=== PATIENT | female | born 1950 | race Caucasian/White ===

== ENCOUNTER 2025-05-22 11:47 | Inpatient (IN) | payer MEDICARE, SELFPAY ==
[2025-05-22] VITALS (16 sets, daily range): BP systolic 107–164; BP diastolic 54–97; BMI 30.3; BMI 30.2
--- NOTE | 2025-05-22 06:25 | ED.GENMED ---
History of Present Illness
General
Chief Complaint: Chest Pain
Source: patient
Exam Limitations: none
Time Seen by Provider: 05/22/25 06:18
History of Present Illness
History of Present Illness:
See MDM
Past History
Past History
ED Past Medical History: HTN
ED Past Surgical History: None
Social History
Tobacco: Non-smoker
Alcohol: None
Phy Exam
Physical Exam
Physical Exam:
See MDM
Scores
Heart Score for Chest Pain Patients
STEMI patient?: No
History: Moderately Suspicious
ECG: Nonspecific Repolarization
Age: >/= 65 years
Risk Factors: 1 or 2 Risk Factors
Troponin: </= Normal Limit
Heart Score for Chest Pain Patients: 5
Heart Score Risk: 20.3% MACE over next 6 weeks
Course
Orders/Labs/Results
Orders:
Orders
05/22/25 06:04
ECG [Electrocardiogram (*1)] Urgent
Reason for Study: Chest Pain
05/22/25 06:05
EKG- Treatment ONCE
05/22/25 06:18
Cardiac Monitoring- Treatment ONCE
EKG- Treatment ONCE
IV Insert/Care/Rem.- Treatment PRN
O2 Therapy [RESP] Urgent
Titrate/Wean O2 to maintain O2 sat greater than (%): 90
Special Instructions: Maintain sats >/=90%
Pulse Ox/spot Check [RESP] Urgent
Quantity: 1
Special Instructions: ON ROOM AIR
05/22/25 06:19
Complete Blood Count/With Diff Urgent
Comprehensive Metabolic Panel Urgent
PT/INR [Prothrombin Time] Urgent
PTT Urgent
Troponin I Urgent
05/22/25 06:24
Dexamethasone Sod Phosphate [Decadron] 10 mg IV NOW STA
Ipratropium/Albuterol Sulfate [Duoneb] 3 ml INH R NOW STA
05/22/25 06:25
CR Chest Portable - 1 View Urgent
Comment:
Reason For Exam: SOB
Reason Study Needs to be Portable: Patient Unstable
05/22/25 06:34
D-Dimer Urgent
05/22/25 06:39
COVID-19 Antigen Urgent
Source: Nasal Swab
NT-proBNP Urgent
Influenza A+B Rapid Molecular Urgent
ELIANE Source: Nasal Swab
Specimen Description:
05/22/25 07:31
CT Chest PE Study Urgent
Comment:
Reason For Exam: SOB
Furosemide [Lasix] 40 mg IV NOW STA
05/22/25 10:14
Diazepam [Valium] 2 mg PO NOW STA
05/22/25 11:12
PTT Urgent
Comment: Obtain baseline before beginning heparin infusion if not already collected
Aspirin Chewable [Low Strength Aspirin] 324 mg PO NOW STA
Heparin 4,000 units IV NOW STA
Pharmacy Request to Place See Dose Instructions PO NOW STA
Discontinue all Active Warfarin orders?: Yes
Nursing to Place Non Medication Order As Directed
Physician Order: PTT 6 hours after initial start of Heparin infusion
05/22/25 11:15
Heparin INFUSION titrate rate - CONTINUOUS Heparin 51994 Units/250 ml 25,000 units in 250 ml IV PER PROTOCOL
Weight to be used for heparin protocol in kilograms (kg):: 75
Protocol:: Cardiac Tx/Acute Coronary
PTT Goal Range to be used:: PTT 73 to 111 seconds
Order type:: Initial
INITIAL Infusion Dose (UNITS/KG/hr) & then follow protocol:: 12 units/kg/hr
Infusion Dose in UNITS/hr & then follow protocol (UNITS/hr):: 900
INFUSION RATE in mL/hr & then follow protocol (mL/hr):: 9
PTT less than or equal to 64 seconds:: Increase rate by 200 units/hr (+ 2 mL/hr)
PTT 64.1 to 72.9 seconds:: Increase rate by 100 units/hr (+ 1 mL/hr)
PTT 73 to 111 seconds:: Target Range. No change in rate.
PTT 111.1 to 130.9 seconds:: Decrease rate by 100 units/hr (- 1 mL/hr)
PTT 131 to 199.9 seconds:: HOLD for 1 hr. Then decrease rate by 200 units/hr (- 2 mL/hr)
PTT greater than or equal to 200 seconds:: HOLD for 2 hrs & Notify Provider. Then decrease by 200 units/hr (-
2 mL/hr)
Lab follow-up:: Each change, PTT q6h until 2 consecutive are therapeutic. Then PTT
daily.
05/22/25 12:[address] See Dose Instructions IV DIRECTED
Abnormal Lab Results
05/22/25 05/22/25
06:19 06:34
MCHC 32.9 L g/dL
(33.0-37.0)
D-Dimer 1.45 H ug/mlFEU
(0.00-0.50)
BUN 22 H mg/dl
(7-17)
Glucose 107 H mg/dl
(70-99)
05/22/25 06:19
05/22/25 06:19
Vital Signs
Initial and Last Documented VS:
Initial Vital Signs
Temp Pulse Resp BP Pulse Ox
97.6 F 107 26 164/97 97
05/22/25 06:12 05/22/25 06:12 05/22/25 06:12 05/22/25 06:12 05/22/25 06:12
Last Documented Vital Signs
Temp Pulse Resp BP Pulse Ox
97.6 F 78 19 116/60 92
05/22/25 06:12 05/22/25 09:00 05/22/25 09:00 05/22/25 09:00 05/22/25 08:45
MDM/Problems Addressed
Differential Diagnosis Includes:
Note:
CHIEF COMPLAINT(S)
Difficulty breathing since this morning.
HISTORY OF PRESENT ILLNESS
The patient is a 74-year-old female who presents with complaints of difficulty breathing that started this morning upon waking. The patient reports waking up about four times to use the restroom and experiencing shortness of breath at those times.
The difficulty breathing is constant, occurring both at rest and with activity, but it worsens with exertion such as walking to the bathroom. The patient denied any recent chest pain but has felt wheezy and has taken deep breaths to alleviate the
sensation. There is no stated history of chronic lung issues such as chronic obstructive pulmonary disease. However, the patient is described as 'pretty wheezy.'
EKG performed showing sinus tachycardia with a left bundle branch block. There is no prior EKG to compare to. Patient states she was told that her is 'abnormal'. She states she had a cardiac evaluation at [facility] a few months ago and
was told her feeling was okay
On arrival, patient 85% on room air requiring 2 L nasal cannula
PHYSICAL EXAM
General: Alert, no acute distress.
Skin: Warm, dry.
Head: Normocephalic, atraumatic
Neck: Appears supple, trachea midline.
Eyes, Ears, Nose, Mouth, and Throat: Moist mucous membranes
Cardiovascular: No signs of cyanosis. Tachycardic
Respiratory: Respirations are non-labored. Expiratory wheezing throughout
Abdomen: Non-distended
Musculoskeletal: No deformities
Neurological: No focal neurological deficit observed.
Psychiatric: Cooperative, appropriate mood and affect.
PLAN
1. Initiate a breathing treatment to address wheezing and improve respiratory status.
2. Conduct further evaluations to rule out bronchitis and ensure cardiac function is normal.
DIFFERENTIAL DIAGNOSIS
The Differential Diagnosis includes, in no particular order and is not limited to:
1. Acute Bronchitis
2. Chronic Obstructive Pulmonary Disease exacerbation
3. Congestive Heart Failure
4. Pulmonary Embolism
5. Asthma
6. Pneumonia
7. Interstitial Lung Disease
8. Anemia
9. Myocardial Infarction
10. Anxiety-related shortness of breath
My independent EKG interpretation is:
- Time of EKG: Not provided
- Rhythm: Sinus tachycardia
- Heart Rate: 107 beats per minute
- Notable Intervals: Not provided
- [place]: Not provided
- Abnormalities: Left bundle branch block
- ST Segment: No ST elevation
- T Wave: Not provided
- Arrhythmias: None other than sinus tachycardia
- Comparison: No prior EKGs available for comparison
05/22/25 - 07:33
The patient reports significant improvement post-Duernab, though chest x-ray findings raise suspicion for pulmonary edema. Elevated BNP suggests possible cardiac strain, but troponin remains within normal limits, indicating no direct cardiac injury.
The elevated D-dimer necessitates a CT chest scan to exclude pulmonary embolism.
05/22/25 - 10:16
The patient will be treated for new-onset CHF, as indicated by the negative SCT and negative promerantibalism period.
SUMMARY OF ENCOUNTER
The patient, a 74-year-old female, presented with shortness of breath. Acute coronary syndrome was ruled out as troponin levels were negative, but findings included an elevated BNP, suggesting possible cardiac strain, and an elevated D-dimer, which
prompted a CT scan to rule out pulmonary embolism. The CT scan showed no evidence of a pulmonary embolism; however, it indicated signs consistent with congestive heart failure. The patient was initially treated with a duoneb, which offered relief. A
dose of furosemide (Lasix) was also administered to manage symptoms of fluid overload. The decision was made to admit the patient for new-onset congestive heart failure for further testing and management by the hospital services.
DISPOSITION
Admit to the hospital service.
ASSESSMENT
New-onset congestive heart failure, with no evidence of pulmonary embolism.
EMERGENCY TREATMENTS ADMINISTERED
Duoneb treatment and furosemide (Lasix).
INDEPENDENT REVIEW OF LABS AND INTERPRETATION OF TESTS
My independent review indicated negative troponins, which reduce the likelihood of acute coronary syndrome. Elevated BNP suggests cardiac strain. D-dimer was elevated, leading to the CT scan. My independent CT interpretation ruled out pulmonary
embolism and showed evidence consistent with congestive heart failure.
MEDICATION RECONCILIATION
Furosemide (Lasix) administered; initial treatment with duoneb provided.
MEDICAL DECISION MAKING
-Complexity of Data Reviewed: Chronic conditions affecting care include the suspicion of acute heart failure due to elevated BNP and negative troponins. Differential diagnosis considered included acute bronchitis, chronic obstructive pulmonary
disease exacerbation, congestive heart failure, pulmonary embolism, asthma, pneumonia, interstitial lung disease, anemia, myocardial infarction, and anxiety-related shortness of breath.
-Data:
Category 1
Non-emergency department records reviewed. Relevant tests included elevated BNP and D-dimer, negative troponin tests, and CT scan interpretation.
Category 2
My independent interpretation of the CT scan ruled out pulmonary embolism and indicated congestive heart failure.
Category 3
Not discussed with external healthcare providers in the provided context.
-Risk:
Prescription medication was prescribed and includes furosemide for management of fluid overload. Elevated BNP verified suspicion of new-onset congestive heart failure, warranting admission for further management.
DIAGNOSIS
Congestive Heart Failure, Unspecified (ICD-10: I50.9).
*Pulse Oximetry
SaO2: 97
Nasal Cannula flow liters per minute: 2
Patient hypoxic: no
*Critical Care Note
Total Time (30-74mins, 75-104mins- exclusive of procedures): Not Applicable
Update Note
Update Note:
11:13 AM patient now complaining of chest pressure. Case discussed with the hospitalist. Given the left bundle branch block with no priors, will load with aspirin and start heparin. The hospitalist stating he will call cardiology
ED Attending Note
-
Portions of this chart may have been created with voice recognition software.� Occasional wrong word or��sound alike� substitutions may have occurred due to the inherent limitations of voice recognition software.
Discharge Plan
Departure
Patient Disposition: Admit
Date of Disposition: 05/22/25
Time of Disposition: 10:21
Admit to: Telemetry
Presentation/result/management discussed w/ accepting MD/DO: Hospitalist
Discharge Problem:
New onset of congestive heart failure
Prescriptions:
No Action
multivitamin Tablet
1 tab PO DAILY
Referrals:
UNKNOWN - PT DOES,NOT KNOW [Family Provider]
Interventions
Interventions:
*Risk Screen - Suicide Last Done: 05/22/25 06:12
*General Assessment Last Done: 05/22/25 06:12
*Neglect/Abuse Screening Last Done: 05/22/25 06:12
*ED- Fall Risk Assessment Last Done: 05/22/25 06:22
*ED COVID-19 Vaccine History Last Done: 05/22/25 06:22
*ED Influenza Vaccine History Last Done: 05/22/25 06:22
ED- Cardiac Assessment Last Done: 05/22/25 06:22
Discharge Date and Time
Print Language: SOUTH SUDANESE
[2025-05-22 06:28] LABS: Hematocrit 41.6 % (37.0-47.0); Hemoglobin 13.7 g/dL (12.0-16.0); Mean Corp Hgb Conc. 32.9 g/dL (33.0-37.0); Mean Corpuscular Volume 86.7 fL (81.0-99.0); Nucleated Red Blood Cells % 0 %; Platelet Count 185 10^3/uL (130-400); Red Cell Dist. Width 13.6 % (11.5-14.5)
[2025-05-22] MEDS: DUONEB 3 ML INH (06:29)
[2025-05-22] MEDS: DECADRON 10 MG IV (06:29)
[2025-05-22 06:37] LABS: INR 0.91; PT 12.7 Sec (11.4-14.6)
[2025-05-22 06:38] LABS: APTT 34.8 Sec (23.4-35.0)
[2025-05-22 06:49] LABS: ALT (SGPT) 30 U/L (0-35); AST (SGOT) 32 U/L (14-36); Albumin 4.6 g/dl (3.5-5.0); Alkaline Phosphatase 62 U/L (38-126); Blood Urea Nitrogen 22 mg/dl (7-17); Calcium 9.3 mg/dl (8.4-10.2); Carbon Dioxide 28 mmol/L (22-30); Chloride 106 mmol/L (98-107); Estimated Creatinine Clearance 58 ml/min; Glucose 107 mg/dl (70-99); Potassium 4.1 mmol/L (3.5-5.1); Sodium 140 mmol/L (135-145); Total Protein 7.3 g/dl (6.3-8.2); eGFR > 60.00
[2025-05-22 07:02] LABS: Troponin I 0.022 ng/ml
[2025-05-22 07:06] LABS: D-Dimer 1.45 ug/mlFEU (0.00-0.50)
[2025-05-22 07:22] LABS: COVID-19 Antigen Negative (Negative)
[2025-05-22] MEDS: LASIX 40 MG IV (07:34)
--- NOTE | 2025-05-22 11:20 | HPS.HSE ---
Family Physician
-
Family Physician: NOT KNOW UNKNOWN - PT DOES
Chief Complaint
-
Shortness of breath, exertional dyspnea, left-sided chest pressure
History of Present Illness
Patient is a 74 visual female with no known history of ASCVD, not on any prescriptive medications who presents to the emergency room with about day of onset of exertional dyspnea, left-sided chest pressure. She denies any palpitation, syncope,
nausea vomiting or other gastrointestinal symptoms.
While in emergency room patient found to be hypoxic with pulse ox of 88% on room air
Refers evaluation with a CT scan of the chest was negative for PE, although evidence for pulmonary edema.
Patient was treated with single dose of Lasix with improvement of symptoms including shortness of breath, although continues to complain of a left-sided chest pressure.
Medical History
Past Medical History
Past Medical History: Reports None
Past Surgical History: Reports None
Social History
Tobacco: Non-smoker
Alcohol: None
Drug: None
Living: With Family
Family History
Family History: CAD (Monitor)
Allergies / Home Medications
Allergies reflects when Allergies were last updated in [employer].
Home Medications with original date entered in [employer]
Allergy/Medication List:
Allergies
Allergy/AdvReac Type Severity Reaction Status Date / Time
No Known Allergies Allergy Verified 05/22/25 06:12
Home Medications
multivitamin 1 tab PO DAILY Supplement 05/22/25
Review of Systems
-
A 12 point ROS was completed and negative except as noted: Yes
Physical Exam
Vital Signs
Vital Signs
Temp Pulse Resp BP Pulse Ox
97.6 F 78 19 116/60 92
05/22/25 06:12 05/22/25 09:00 05/22/25 09:00 05/22/25 09:00 05/22/25 08:45
Physical Exam
General: Well Developed, Well Nourished and No Apparent Distress
HEENT: NormoCephalic, Moist mucous membranes and Atraumatic
Respiratory: Clear
Cardiac: S1/S2 and Regular Rhythm; No Murmur or Rub
GI: Soft, Non Tender, Non Distended and Normal Bowel Sounds; No Organomegaly
Rectal: Deferred by Provider
Musculoskeletal: No Clubbing, No Cyanosis and No Edema
Skin: No Rash
Neuro: Nonfocal/grossly intact
Laboratory Results
-
05/22/25 06:19
05/22/25 06:19
Laboratory Results
PT 12.7 Sec (11.4-14.6) 05/22/25 06:19
INR 0.91 05/22/25 06:19
APTT 34.8 Sec (23.4-35.0) 05/22/25 06:19
Total Bilirubin 0.7 mg/dl (0.2-1.3) 05/22/25 06:19
AST 32 U/L (14-36) 05/22/25 06:19
ALT 30 U/L (0-35) 05/22/25 06:19
Alkaline Phosphatase 62 U/L (38-126) 05/22/25 06:19
Troponin I 0.022 ng/ml 05/22/25 06:19
Impression/Plan
-
IMPRESSION:
74 years old female without known medical history including negative history for ASCVD presents with exertional dyspnea, chest pressure.
Acute hypoxic respiratory insufficiency secondary to below
CHF unknown EF and pulmonary edema
Concern for acute coronary syndrome (presenting with chest pressure and LBBB)
LBBB unknown chronicity.
PLAN:
Admit to IVU.
Cardiology evaluation
Echocardiogram.
Start aspirin.
Start IV heparin.
Consider addition of anticoagulation if blood pressure tolerates
Trend troponin.
Lipid profile
Hemoglobin A1c
Follow response to Lasix given in ED.
Continue Lasix 40 mg IV daily with daily weights.
Continue oxygen supplementation
Full code
[2025-05-22] MEDS: LOW STRENGTH ASPIRIN 324 MG PO (11:28)
[2025-05-22] MEDS: VALIUM 2 MG PO (11:28)
[2025-05-22] MEDS: HEPARIN 4000 UNITS IV (11:34)
[2025-05-22] MEDS: HEPARIN 25000 UNITS/250 ML IV (11:35)
[2025-05-22 11:57] LABS: APTT 30.6 Sec (23.4-35.0)
--- NOTE | 2025-05-22 12:38 | CON.CAR ---
Addendum entered and electronically signed by Luis Fallon MD 05/22/25 14:46:
I saw and evaluated the patient, and I provided the substantive portion of the medical decision making.
I reviewed and agree with the note by Vianca Lance and it accurately reflects our care.
I personally performed the medical decision making of the this encounter and my assessment and plan is below:
74-year-old female with no significant past medical history presents for evaluation of chest pain and acute shortness of breath. She had been noticing some episodes of increasing exertional chest pressure that was evaluated at [facility] 3 months
ago, she reports she was evaluated and told everything was okay. She continued to have exertional chest pain and had a more severe episode while playing with her grandkids yesterday. Went home fell asleep and woke up in the middle of the night
with acute onset shortness of breath, chest pressure and sought emergent care. Interestingly she also has some residual pain to touch. In the emergency room she presented with tachycardia and a left bundle branch block. Initial troponin 0.02 and
received IV Lasix with some symptomatic improvement.
On exam she has a regular rate and rhythm with normal S1-S2 no murmurs gallops or appreciated lungs are clear to auscultation. She did have some slight tenderness across the anterior chest wall especially in the left side but states this is
different than the pain she woke up with. No lower extremity edema. Abdomen is soft nontender nondistended.
Chest x-ray shows increased interstitial markings concerning for pulmonary edema. EKG shows sinus rhythm with left bundle branch block. proBNP is 2380.
Assessment:
Acute coronary syndrome: Findings concerning for unstable angina versus ACS. Initial troponin 0.02.
- Agree with aspirin and IV heparin.
- Will proceed to coronary artery catheterization today.
- Add OMT as able
- Trend troponin
- Echo
Acute pulmonary edema: Seems to have had an ischemic etiology. Already feeling better with a single dose of IV Lasix. Will evaluate for additional doses. Will check echo. GDMT as indicated.
Eval elevated blood pressure without a diagnosis of hypertension: Continue to monitor. Will add medications as needed.
Morbid obesity: Weight loss with dietary restriction needed.
Will follow
[ ]
Original Note:
Consultation
Consultation Request
Date/Time Consultation Requested: 05/22/25 11:15a
Date/Time Consultation Performed: 05/22/25 12p
Requesting Provider: Dr. Petersen
Performing Provider: JOB Johnson for Dr. Fallon
Reason for Consultation: chest pain
Medical History
-
Chief Complaint: chest pain
History of Present Illness:
Mrs. Robbins is a 74 yo female with no significant past medical history, who presents to the ER with c/o chest pain and SOB that initially began 3 months ago. She had exertional chest pressure and went to [facility] 3 months ago, 'everything was
fine and I was sent home'. She continued to have exertional chest pressure with exercise. Yesterday around 4pm she was walking and playing with her grandkids and had left chest pressure and SOB. She went home and fell asleep and woke up with
chest pressure so she came to the ER. EKG with ST 107 bpm, LBBB. Initial troponin 0.022, very mild chest pressure currently.
Social History
Tobacco: Non-Smoker
Alcohol: None
Living: With Roomate
Family History
Family History: Other (mother had CHF age 56 )
Allergies / Home Medications
Allergy/AdvReac Type Severity Reaction Status Date / Time
No Known Allergies Allergy Verified 05/22/25 06:12
�Medication �Instructions �Recorded �Confirmed �Type
multivitamin 1 tab PO DAILY Supplement 05/22/25 05/22/25 History
Review of Systems
-
History Source: Patient
All other systems: Negative unless noted
Physical Exam
Vital Signs
Temp Pulse Resp BP Pulse Ox
97.6 F 80 13 133/75 95
05/22/25 06:12 05/22/25 12:15 05/22/25 12:15 05/22/25 12:00 05/22/25 12:15
Lab Results
05/22/25 06:19
05/22/25 06:19
Troponin I 0.022 ng/ml 05/22/25 06:19
Hkm-Y-Adwngeewdim Pept 2380 pg/ml 05/22/25 06:39
Physical Exam
General: Well Developed, Well Nourished and No Apparent Distress
HEENT: Normocephalic
Respiratory: Clear and Non Labored Respirations
Cardiac: S1/S2 and Regular Rhythm
Breast: Deferred by me
GI: Soft, Non Tender and Normal Bowel Sounds
Rectal: Deferred by Provider
Genito-urinary: No Costovertebral Tender
Musculoskeletal: No Clubbing, No Cyanosis and No Edema
Skin: Warm and Dry
Neuro: AO x 3
Hematologic/Lymphatic: No Lymphadenopathy
Psych: Calm
Impression / Plan
-
Chest pain/UA - exertional angina ongoing for 3 months.
- troponin 0.022, trend.
- EKG with new LBBB.
- ASA, Heparin.
- plan for [facility] today, she is agreeable.
- check lipid profile.
Pulmonary edema - acute.
- initial room air sat 88% in the ER.
- improved with Lasix.
- CT chest negative for PE.
- monitor.
Data Reviewed
-
EKG: Tracing Personally Visualized and interpreted (ST 107 bpm LBBB.)
Radiology: Report Reviewed by me (CXR: Nonspecific increased interstitial markings bilaterally. No large pleural effusions.)
CT Scan: Report Reviewed by me (chest: mild pulmonary edema)
Labs: Labs Reviewed by me
Old Records: Reviewed
--- NOTE | 2025-05-22 16:06 | ITS.CL.PN ---
Systems Engineering Manager - Procedure Note
Procedure
Procedure Note:
CARDIAC CATHETERIZATION REPORT
Date of Procedure: 05/22/2025
Referring: Dr. Luis Fallon MD
Indication: concern for ACS
PROCEDURE(S)
1. left heart catheterization
2. coronary angiography
ACCESS: 6F right radial artery (closure: radial band)
CATHETERS
1. 6F JR4
2. 6F JL4
MODERATE SEDATION: 25 minutes of moderate sedation was utilized. An independent medical records administrator was present to assist with and help manage the patient's level of consciousness and physiologic status.
HEMODYNAMIC DATA
LV 114/6 (EDP 10) mmHg
AO 110/63 (mean 84) mmHg
CORONARY ANGIOGRAPHY
Dominance: right
LM: large with very mild distal vessel tapering
LAD: large vessel giving rise to three small diagonal branches and one moderate caliber diagonal branch before wrapping around the apex. There trivial luminal irregularities only.
LCx: large vessel giving rise to a moderate caliber OM1. There trivial luminal irregularities only.
RCA: large vessel giving rise to a moderate caliber RPDA and moderate caliber RPL branch. There trivial luminal irregularities only.
RADIATION: dose 219 mGy; DAP 11.8 Gy*cm2; fluoroscopy time 2.8 min
CONCLUSIONS
1. trivial coronary artery disease in a right dominant system
2. normal LV filling pressure and no aortic stenosis
[2025-05-22 17:58] LABS: Troponin I 0.248 ng/ml
[2025-05-22 18:02] LABS: HDL Cholesterol 73 mg/dl; LDL Cholesterol, Calculated 141 mg/dl; Very Low Density Lipoprotein 7 mg/dl (0-30)
--- NOTE | 2025-05-22 18:11 | PTCARENOTE ---
Pt received from lab associate with band on right radial artery. Pt denying any pain. SaO2 96% on room air. Diminished lungs at the bases. Sinus rhythm with BBBC on property assessment monitor. +1 pitting LE edema. CHF education packet given. Troponin resulted
0.248. Dr. Fallon notified.
[2025-05-22] MEDS: MAALOX 30 ML PO (19:57)
[2025-05-22] MEDS: PROTONIX 40 MG PO (20:51)
--- NOTE | 2025-05-22 20:55 | PTCARENOTE ---
Patient received at change of shift resting in the bed. Upon assessing right radial puncture with previous shift RN the patient reported severe intermittent left-sided chest burning that feels better when she burps. An EKG was completed. The house
FRUIT [facility]YER was notified who ordered a stat dose of Maalox, following administration the patient reported feeling better. Stat dose of Protonix also ordered for the patient, see MAR. Sinus rhythm on telemetry. Oxygen saturation on RA 93-96%. Right radial
puncture with gauze and tegaderm, C/D/I. Plan of care discussed. Call elliott within reach. Care ongoing.
[2025-05-22 23:58] LABS: Troponin I 0.205 ng/ml
[2025-05-23 02:38] VITALS: BP 139/53
[2025-05-23 02:45] VITALS: BMI 29.2
[2025-05-23 03:21] LABS: Hematocrit 37.4 % (37.0-47.0); Hemoglobin 12.7 g/dL (12.0-16.0); Mean Corp Hgb Conc. 34.0 g/dL (33.0-37.0); Mean Corpuscular Volume 86.4 fL (81.0-99.0); Nucleated Red Blood Cells % 0 %; Platelet Count 187 10^3/uL (130-400); Red Cell Dist. Width 13.5 % (11.5-14.5)
[2025-05-23 03:44] LABS: Blood Urea Nitrogen 35 mg/dl (7-17); Calcium 9.3 mg/dl (8.4-10.2); Carbon Dioxide 27 mmol/L (22-30); Chloride 104 mmol/L (98-107); Estimated Creatinine Clearance 57 ml/min; Glucose 95 mg/dl (70-99); HDL Cholesterol 62 mg/dl; LDL Cholesterol, Calculated 135 mg/dl; Potassium 3.9 mmol/L (3.5-5.1); Sodium 138 mmol/L (135-145); Very Low Density Lipoprotein 13 mg/dl (0-30); eGFR > 60.00
[2025-05-23 08:54] LABS: Glycohemoglobin (HgbA1c) 5.3 % (4.0-5.6)
[2025-05-23 08:56] VITALS: BP 115/49
--- NOTE | 2025-05-23 09:05 | W.PN.HOSP.TC ---
Today's Communication/Plan
-
possible d/c today if cleared by cards
will need recommended meds as per them
Assessment / Plan
Assessment / Plan
pt is a 74 year old female
Acute hypoxic respiratory insufficiency due to HFrEF and pulm edema exacerbation--s/p cardiac cath with trivial CAD in right dominant system--medical management --apprec cards--cont asa--GDMT as tolerated by BP
DVT proph
code status--Full code
Anticipated Discharge: Today
Subjective/Interval History
-
Date of Service: May 23, 2025
pt tells me she is feeling better and is discharging today
Objective Data
-
Labs:
Laboratory Results
05/23/25
02:44
WBC 10.7
Hgb 12.7
Hct 37.4
Plt Count 187
Sodium 138
Potassium 3.9
Chloride 104
Carbon Dioxide 27
BUN 35 H
Creatinine 0.8
Glucose 95
Calcium 9.3
Vital Signs:
max temp for 24 hours
05/22/25
19:24
Temp 98.3 F
Vital Signs
Temp Pulse Resp BP Pulse Ox
98.1 F 79 18 139/53 99
05/23/25 08:56 05/23/25 08:56 05/23/25 02:38 05/23/25 02:38 05/23/25 08:56
I&O
05/22/25 05/23/25 05/24/25
06:59 06:59 06:59
Intake Total 240 / 240
Balance 240 / 240
Review of Systems
-
All other systems: Reviewed and negative
Physical Exam
-
General: Well Developed, Well Nourished and No Apparent Distress
HEENT: Normocephalic and Atraumatic; Negative Oxygen
Respiratory: Clear to Auscultation; Negative Wheezes, Rhonchi or Crackles
Cardiac: Regular Rhythm and S1/S2
GI: Soft, Nontender, Nondistended and Normal Bowel Sounds
Musculoskeletal: No Clubbing, No Cyanosis and No Edema
Skin: Warm
Neuro: Awake
Psych: Calm
[2025-05-23] MEDS: THERAGRAN 1 TABLET PO (09:24)
[2025-05-23] MEDS: PROTONIX 40 MG PO (09:24)
[2025-05-23] MEDS: LASIX 40 MG IV (09:24)
[2025-05-23] MEDS: FLUSH (NSS) 1 FLUSH IV (09:26)
--- NOTE | 2025-05-23 10:39 | W.PN.CD ---
Today's Communication / Plan
-
- Patient feels better prefers discharge today.
-Start GDMT, add sglt2i, bb and ARB, as op transition to entresto and add MRA as able
-would consider Cardiac MRI as op given atypical wall motion distribution
-Daily weights, would not discharge on furosemide. Will call the office if weight jumps more than 3 pounds in a day or 5 pounds in 5 days.
- Salt and fluid restrictions (2 g and 50 ounces respectively)
- Heart failure team and cardiac rehab consults placed
Impression / Plan
-
Nonischemic CMY 30-35
-euvolemic on LVEDP
-Start GDMT, add sglt2i, bb and ARB, as op transition to entresto and add MRA as able
-would consider Cardiac MRI as op given atypical wall motion distribution
-Daily weights, would not discharge on furosemide. Will call the office if weight jumps more than 3 pounds in a day or 5 pounds in 5 days.
- Salt and fluid restrictions (2 g and 50 ounces respectively)
- Heart failure team and cardiac rehab consults placed
Pulmonary edema - acute.
- resolved.
TTE: 05/22/25 SUMMARY
1. Multiple left ventricular segmental wall motion abnormalities are noted, as described below. The apex is spared.
2. Ejection fraction is 30-35% by visual assessment.
3. Right ventricular size and systolic function are within normal limits.
4. No significant valve disease.
5. No prior study for comparison.
Cath 05/22/25:
CONCLUSIONS
1. trivial coronary artery disease in a right dominant system
2. normal LV filling pressure and no aortic stenosis
Physical Exam
Vital Signs/Labs
Vital Signs
Temp Pulse Resp BP Pulse Ox
98.1 F 68 18 115/49 99
05/23/25 08:56 05/23/25 10:00 05/23/25 02:38 05/23/25 09:24 05/23/25 08:56
05/22/25 05/23/25 05/24/25
06:59 06:59 06:59
Actual Weight 165 lb 5.547 oz 159 lb 9.835 oz
05/23/25 02:44
05/23/25 02:44
PT 12.7 Sec (11.4-14.6) 05/22/25 06:19
INR 0.91 05/22/25 06:19
APTT Cancelled 05/22/25 18:00
Triglycerides 65 mg/dl (10-149) 05/23/25 02:44
LDL Cholesterol, Calc 135 mg/dl 05/23/25 02:44
VLDL Cholesterol, Calc 13 mg/dl (0-30) 05/23/25 02:44
HDL Cholesterol 62 mg/dl 05/23/25 02:44
05/22/25
06:39
Quq-W-Hnfykwaewsu Pept 2380
LAB Results
05/22/25 05/22/25 05/22/25
06:19 17:14 23:03
Troponin I 0.022 0.248 H* 0.205 H*
Physical Exam
Constitutional: No acute distress
Cardiovascular: Rhythm & rate is regular, Pedal edema is absent, JVD pressure is normal, Systolic murmur absent and Diastolic murmur absent
Respiratory: Respiratory effort normal, Lungs clear to auscul., Wheeze Absent, Crackles Absent and Rhonchi Absent
Neuro/Psych: AO x 3
Data Reviewed
-
Date of Service: May 23, 2025
Medical Decision Making: Review of Case with other Provider (Dr. Patel, okay to discharge home initiating GDMT. Will have our office contact her for follow-up.)
EKG: Other (Telemetry: Sinus rhythm)
[2025-05-23] MEDS: DIOVAN 40 MG PO (11:30)
[2025-05-23 11:40] VITALS: BP 129/62
[2025-05-23] MEDS: FLUZONE HIGH-DOSE 2025-26 0.5 ML IM (11:57)
--- NOTE | 2025-05-23 12:14 | PTCARENOTE ---
D/C instructions given to patient , verbalizes understanding. INT x 2 D/C'd, telemetry D/C'd, personal belongings packed and sent home with patient. flu vaccine given as ordered. patient will receive pneumonia vaccine from her primary. D/C to home
[facility] accompanied by staff.
--- NOTE | 2025-05-23 15:30 | W.DCSUMMARY ---
Discharge Summary
Discharge Data
Date of Admission: 05/22/25
Date of Discharge: 05/23/25
-
Pending Results: No
Hospital Course
Primary care physician : Not Listed
Principal Discharge diagnosis : Acute hypoxic respiratory insufficiency due to heart failure with reduced ejection fraction and pulmonary edema exacerbation
Chronic Discharge diagnosis : None
Hospital Course : Patient was a 74-year-old female with no medical history and not on any medications who presented after 1 day of exertional dyspnea and left-sided chest pressure. She denied palpitations, syncope, nausea, or vomiting. She was
found to be hypoxic with a pulse ox of 88% on room air. CAT scan of the chest was done which was negative for pulmonary embolism the patient was treated with a single dose of Lasix and had improvement. Patient was admitted.
Patient was seen in consultation by cardiology. She was taken to the [facility] and found to have trivial coronary artery disease. Echocardiogram was done which showed ejection fraction of 30 to 35%. She is feeling markedly better this morning.
She has been cleared for discharge by cardiology with GDMT therapies. Jardiance, metoprolol, and valsartan were started. They are not recommending discharging on any diuretic therapy. Salt and fluid restrictions include 2 g and 50 ounces
respectively. She should follow-up with the instrumentation and controls designer as indicated.
Patient is stable for discharge home at this time. If there are any questions regarding this dictation or her hospital stay, please do not hesitate to call. Our office number is [phone].
Procedure findings :
CARDIAC CATH CONCLUSIONS:
1. trivial coronary artery disease in a right dominant system
2. normal LV filling pressure and no aortic stenosis
ECHO SUMMARY:
1. Multiple left ventricular segmental wall motion abnormalities are noted, as described below. The apex is spared.
2. Ejection fraction is 30-35% by visual assessment.
3. Right ventricular size and systolic function are within normal limits.
4. No significant valve disease.
5. No prior study for comparison.
Discharge Plan
-
Patient Disposition: Home (Routine Discharge)
Discharge Diagnosis/Procedures: new onset heart failure with reduced ejection fraction status post cardiac catheterization with acute hypoxemic respiratory insufficiency
Condition: Good
Diet: 2 Gram Sodium and Restrict fluids to 48 oz
Activity: As tolerated
Driving Restrictions: As prior to admission
Bathing Restrictions: None
Specialty Instructions: Weigh Daily- Call MD for wt gain/loss 3 lbs overnight/5 lbs in 1 week
Stand Alone Forms: DC Instructions- Cath/EP Lab
Referrals:
[facility] cardio [Other]
Referral Note: office will contact you to arrange follow up
UNKNOWN - PT DOES,NOT KNOW [Family Provider] - in less than 1 week
Prescriptions:
New
pantoprazole 40 mg Tablet,Delayed Release (Dr/Ec)
40 mg PO DAILY Qty: 30 0RF
metoprolol succinate 25 mg Tablet Extended Release 24 Hr
25 mg PO QPM Qty: 30 0RF
valsartan 40 mg Tablet
40 mg PO DAILY Qty: 30 0RF
dapagliflozin propanediol 10 mg Tablet
10 mg PO DAILY Qty: 30 0RF
Continued
multivitamin Tablet
1 tab PO DAILY
Discharge Orders:
Discharge Patient (As Directed); Ordered 05/23/25
Ordered By: Sima Patel
Care Plan Goals
Care Plan Goals:
Problem: Readiness for enhanced knowledge related to diagnosis and treatment plan
Goal: Understand your diagnosis and treatment plan needs, including medications if applicable.
Instructions: Know your diagnosis, underlying causes and treatment plan options, including medications if applicable. Consult with your health care team to learn about your diagnosis and treatment plan, including medications if applicable.
Discharge Date and Time
Discharge Date/Time: 05/23/25 12:17
Print Language: SLOVAK
[2025-05-23 19:01] LABS: Hepatitis C Antibody Negative (Negative)
--- NOTE | 2025-05-25 11:41 | W.HF.CON ---
Heart Failure
- LV Function
Left ventricular function study result: LV Ejection fraction </= 35%
Ejection Fraction Percentage: 30-35
- ARNI
Patient already on ARNI: No
Heart Failure ARNI Contraindication: Hypotension
- ACEI/ARB
Patient already on ACEI/ARB: Yes
- Beta Danisha
Patient already on Evidence Based Beta Danisha: Yes
- Mineralocorticord Receptor Antagonist
Patient already on MRA: No
Heart Failure MRA Contraindication: Hypotension
- SGLT-2 Inhibitor
Patient already on SGLT-2 Inhibitor: Yes
- NYHA CHF Classification
NYHA CHF Classification Level: Class III - Symptoms w/ min exertion, interferes w/ nml daily activity
- ACC/AHA Stage
ACC/AHA Stage: Stage C: Symptomatic Heart Failure
== END 2025-05-23 12:17 | disposition home or self-care (01) | DRG 287 ==
LOC: IVU 11:47
PROVIDERS: Urology; ADMITTING PHYSICIAN Internal Medicine; ATTENDING PHYSICIAN Internal Medicine; CONSULT PHYSICIAN Internal Medicine Cardiovascular Disease; EMERGENCY PHYSICIAN Student in an Organized Health Care Education/Training Program
PROC: B2111ZZ Fluoroscopy of Multiple Coronary Arteries using Low Osmolar Contrast (ICD-10-PCS; 2025-05-22)
PROC: B2151ZZ Fluoroscopy of Left Heart using Low Osmolar Contrast (ICD-10-PCS; 2025-05-22)
PROC: 4A023N7 Measurement of Cardiac Sampling and Pressure, Left Heart, Percutaneous Approach (ICD-10-PCS; 2025-05-22)
PROC: 3E02340 Introduction of Influenza Vaccine into Muscle, Percutaneous Approach (ICD-10-PCS; 2025-05-23)
DX: I11.0 Hypertensive heart disease with heart failure (principal); Z11.52 Encounter for screening for COVID-19; I50.20 Unspecified systolic (congestive) heart failure; R09.02 Hypoxemia; R06.89 Other abnormalities of breathing; E66.01 Morbid (severe) obesity due to excess calories; Z23 Encounter for immunization
CPT/HCPCS: 71045; 71275; 80048; 80053; 80061; 83036; 83880; 84484; 85025; 85379; 85610; 85730; 86803; 87502; 87811; 90662; 93005; 93306; 93458; 94640; 94760; 96374; 96375; 99152; 99153; 99285; C1769; C1894; G0008; Q9950; Q9967